=== PATIENT | female | born 1960 | race Two or more races ===

== ENCOUNTER 2023-07-07 19:37 | Emergency (ER) | payer OTHER, MEDICAID ==
[~2023-07-07] VITALS: Ht 162.6 cm; Wt 48.5 kg
[2023-07-07 20:06] LABS: BASOPHILS % (AUTO) 0.9 % (0.0-2.0); EOSINOPHILS # (AUTO) 0.2 K/uL (0.0-0.7); HEMATOCRIT 38 % (33-45); HEMOGLOBIN 12.5 g/dL (11.5-14.8); LYMPHOCYTES # (AUTO) 1.7 K/uL (0.8-4.8); LYMPHOCYTES % (AUTO) 41.4 % (20.0-44.0); MEAN CORPUSCULAR HEMOGLOBIN 30 PG (26.0-33.0); MEAN CORPUSCULAR HGB CONC 33 g/dl (31.0-36.0); MEAN CORPUSCULAR VOLUME 91 fL (82-100); MONOCYTES # (AUTO) 0.7 K/uL (0.1-1.30); MONOCYTES % (AUTO) 16.1 % (2.0-12.0); NEUTROPHILS # (AUTO) 1.5 K/uL (1.8-8.9); NEUTROPHILS % (AUTO) 36.6 % (43.0-81.0); PLATELET COUNT (AUTO) 254 K/uL (150-450); RED BLOOD CELL COUNT(AUTO) 4.15 MIL/uL (4.0-5.2); WHITE BLOOD COUNT (AUTO) 4.1 K/uL (4.3-11.0)
[2023-07-07 20:18] LABS: CALCIUM, SERUM 9.1 mg/dL (8.5-10.1); CARBON DIOXIDE 27 mmol/L (21-32); CHLORIDE 106 mmol/L (98-107); CREATININE 0.7 mg/dL (0.6-1.3); GLUCOSE 88 mg/dL (74-106); POTASSIUM 3.9 mmol/L (3.5-5.1); SODIUM SERUM 143 mmol/L (136-145); UREA NITROGEN, BLOOD 30 mg/dL (7-18)
[2023-07-07 20:29] LABS: ACETAMINOPHEN < 10 ug/ml (10-30); ALANINE AMINOTRANSFERASE 28 U/L (12-78); ALBUMIN 3.4 g/dL (3.4-5.0); ALKALINE PHOSPHATASE 111 U/L (46-116); ASPARTATE AMINOTRANSFERASE 13 U/L (15-37); BILIRUBIN,DIRECT 0.1 mg/dL (0.0-0.2); BILIRUBIN,TOTAL 0.3 mg/dL (0.2-1.0); SALICYLATE 4.4 mg/dL (2.8-20.0); TOTAL PROTEIN, SERUM 6.7 g/dL (6.4-8.2)
[2023-07-07 20:31] LABS: ALCOHOL, BLOOD < 3 mg/dL (0-10)
[2023-07-07 22:00] LABS: APPEARANCE,URINE CLEAR (CLEAR); BILIRUBIN,URINE NEGATIVE (NEGATIVE); BLOOD, URINE NEGATIVE Ery/uL (NEGATIVE); COLOR,URINE YELLOW (YELLOW); KETONES,URINE NEGATIVE (NEGATIVE); LEUKOCYTE ESTERASE ,URINE 2+ (NEGATIVE); NITRITE, URINE POSITIVE (NEGATIVE); PROTEIN,URINE NEGATIVE (NEGATIVE); UGLUCOSE NEGATIVE (NEGATIVE); UROBILINOGEN,URINE 0.2 EU/dL (0.2)
[2023-07-07 22:14] LABS: AMPHETAMINE, URINE NEGATIVE (NEGATIVE); BARBITURATE, URINE NEGATIVE (NEGATIVE); BENZODIAZEPINE, URINE NEGATIVE (NEGATIVE); CANNABINOID, URINE NEGATIVE (NEGATIVE); COCCAINE, URINE NEGATIVE (NEGATIVE); OPIATE, URINE NEGATIVE (NEGATIVE); PHENCYCLIDINE SCREEN,URINE NEGATIVE (NEGATIVE)
[2023-07-07 23:13] LABS: EOSINOPHILS % (MANUAL) 7 % (0-4); LYMPHOCYTES % (MANUAL) 39 % (16-48); MONOCYTES % (MANUAL) 16 % (0-11.0); NEUTROPHILS % (MANUAL) 38 (42-76); PLATELET ESTIMATE ADEQUATE
[2023-07-07 23:32] LABS: ADD URINE CULTURE YES; BACTERIA,URINE 2+ /HPF (None Seen); RBC,URINE NONE SEEN /HPF (0-2); WBC,URINE 0-2 /HPF (0-3)
[2023-07-08 08:21] VITALS: BP 110/66; TEMP 98.3; O2SAT 95
== END 2023-07-08 08:22 ==
LOC: ER 19:41
DX: F20.9 Schizophrenia, unspecified (principal); F41.9 Anxiety disorder, unspecified; Z20.822 Contact with and (suspected) exposure to COVID-19; Z88.0 Allergy status to penicillin; Z88.1 Allergy status to other antibiotic agents
CPT/HCPCS: 99285; 85025; 80048; 87086; 80076; 85007; 81001; 36415; 87426; 80143; 80320; 80307; C9803; G0480

== ENCOUNTER 2024-12-10 08:20 | Emergency (ER) | payer OTHER, MEDICAID ==
[~2024-12-10] VITALS: Ht 162.6 cm; Wt 59.0 kg
[2024-12-10] MEDS ORDERED: OLANZAPINE 10 MG VIAL IM ONE (08:47)
[2024-12-10] MEDS: OLANZAPINE 10 MG VIAL IM ONE (08:58)
[2024-12-10 09:07] LABS: BASOPHILS % (AUTO) 0.8 % (0.0-2.0); EOSINOPHILS # (AUTO) 0.1 K/uL (0.0-0.7); EOSINOPHILS % (AUTO) 1.5 % (0.0-6.0); HEMATOCRIT 41 % (33-45); HEMOGLOBIN 13.4 g/dL (11.5-14.8); LYMPHOCYTES # (AUTO) 2.7 K/uL (0.8-4.8); LYMPHOCYTES % (AUTO) 52.9 % (20.0-44.0); MEAN CORPUSCULAR HEMOGLOBIN 29 PG (26.0-33.0); MEAN CORPUSCULAR HGB CONC 33 g/dl (31.0-36.0); MEAN CORPUSCULAR VOLUME 89 fL (82-100); MONOCYTES # (AUTO) 0.6 K/uL (0.1-1.30); MONOCYTES % (AUTO) 11.1 % (2.0-12.0); NEUTROPHILS # (AUTO) 1.7 K/uL (1.8-8.9); NEUTROPHILS % (AUTO) 33.7 % (43.0-81.0); PLATELET COUNT (AUTO) 300 K/uL (150-450); RED BLOOD CELL COUNT(AUTO) 4.57 MIL/uL (4.0-5.2); RED CELL DISTRIBUTION WIDTH 13.9 % (11.5-15.0); WHITE BLOOD COUNT (AUTO) 5.1 K/uL (4.3-11.0)
[2024-12-10 09:16] LABS: CARBON DIOXIDE 32 mmol/L (21-32); CHLORIDE 105 mmol/L (98-107); CREATININE 0.8 mg/dL (0.6-1.3); GLUCOSE 89 mg/dL (74-106); POTASSIUM 4.4 mmol/L (3.5-5.1); SODIUM SERUM 140 mmol/L (136-145); UREA NITROGEN, BLOOD 12 mg/dL (7-18)
[2024-12-10 09:19] LABS: APPEARANCE,URINE CLEAR (CLEAR); BILIRUBIN,URINE NEGATIVE (NEGATIVE); BLOOD, URINE NEGATIVE Ery/uL (NEGATIVE); COLOR,URINE OTHER (YELLOW); KETONES,URINE NEGATIVE (NEGATIVE); LEUKOCYTE ESTERASE ,URINE 1+ (NEGATIVE); NITRITE, URINE NEGATIVE (NEGATIVE); PROTEIN,URINE NEGATIVE (NEGATIVE); UGLUCOSE NEGATIVE (NEGATIVE); UROBILINOGEN,URINE 0.2 EU/dL (0.2)
[2024-12-10 09:23] LABS: ALANINE AMINOTRANSFERASE 50 U/L (12-78); ALBUMIN 3.4 g/dL (3.4-5.0); ALCOHOL, BLOOD < 3 mg/dL (0-10); ALKALINE PHOSPHATASE 122 U/L (46-116); ASPARTATE AMINOTRANSFERASE 35 U/L (15-37); BILIRUBIN,DIRECT 0.1 mg/dL (0.0-0.2); BILIRUBIN,TOTAL 0.2 mg/dL (0.2-1.0); TOTAL PROTEIN, SERUM 7.1 g/dL (6.4-8.2)
[2024-12-10 09:24] LABS: ACETAMINOPHEN <10 ug/ml (10-30); SALICYLATE 0.9 mg/dL (2.8-20.0)
[2024-12-10 09:26] LABS: ADD URINE CULTURE YES; BACTERIA,URINE Few /HPF (None Seen); RBC,URINE 0-2 /HPF (0-2)
[2024-12-10 09:40] LABS: AMPHETAMINE, URINE NEGATIVE (NEGATIVE); BARBITURATE, URINE NEGATIVE (NEGATIVE); BENZODIAZEPINE, URINE NEGATIVE (NEGATIVE); CANNABINOID, URINE NEGATIVE (NEGATIVE); COCCAINE, URINE NEGATIVE (NEGATIVE); OPIATE, URINE NEGATIVE (NEGATIVE); PHENCYCLIDINE SCREEN,URINE NEGATIVE (NEGATIVE)
[2024-12-10 14:05] VITALS: BP 94/64; TEMP 98.4; O2SAT 98
== END 2024-12-10 16:00 ==
LOC: ER 08:21
DX: F20.0 Paranoid schizophrenia (principal); Z88.0 Allergy status to penicillin; Z88.6 Allergy status to analgesic agent; Z20.822 Contact with and (suspected) exposure to COVID-19
CPT/HCPCS: 99285; 96372; 85025; 80048; 80076; 81001; 36415; 87426; 80143; 80320; 80307; J3490; G0480